=== PATIENT | female | born 1960 | race Caucasian/White ===

== ENCOUNTER → 2017-08-25 | Outpatient (CLI) | payer OTHER ==
[~2017-08-25] MED LIST: NKM
--- NOTE | 2017-08-25 15:48 | Diagnostic Imaging Report ---
PROCEDURE:EXTREMITY ULTRASOUND COMPARISON:None. INDICATIONS:BILATERAL INGUINAL PAIN TECHNIQUE:Grayscale and color Doppler ultrasound evaluation analysis was performed of the bilateral inguinal regions. FINDINGS: See conclusion. CONCLUSION: No discrete fluid collection, mass, or evidence of herniation visualized in the bilateral inguinal regions. Normal soft tissues, lymph nodes, and vessels visualized. Dictated by: Antony Aly M.D. on 08/25/2017 at 15:48 Electronically approved by: Antony Aly M.D. on 08/25/2017 at 15:48
== END ==
LOC: US 14:14
PROVIDERS: ATTEND Family Medicine
DX: R10.30 Lower abdominal pain, unspecified (principal)
CPT/HCPCS: 76882